=== PATIENT | male | born 1975 | race Caucasian/White ===

== ENCOUNTER 2022-08-30 07:40 | Day surgery (SDC) | payer BC ==
[2022-08-30] MEDS ORDERED: Lactated Ringers 1,000 ML IV SCH (08:15)
[2022-08-30] MEDS ORDERED: Propofol 200 MG/20 ML SDV ONE ×2 (08:40→09:59)
[2022-08-30] MEDS ORDERED: Midazolam 1 MG/ML 2 ML SDV ONE (08:40)
[2022-08-30] MEDS ORDERED: fentaNYL 50 MCG/ML SDV ONE (08:40)
[2022-08-30] MEDS ORDERED: Dextrose 5%-Lactated Ringers 1,000 ML IV SCH (08:45)
== END 2022-08-30 11:45 | disposition home or self-care (01) ==
LOC: JP.SDS 07:40
PROVIDERS: ATTEND Family Medicine
DX: Z12.11 Encounter for screening for malignant neoplasm of colon (principal); D12.3 Benign neoplasm of transverse colon; I10 Essential (primary) hypertension; E11.9 Type 2 diabetes mellitus without complications; Z79.899 Other long term (current) drug therapy
CPT/HCPCS: 45380; 88305; J2250; J2704; J3010; J7121